=== PATIENT | male | born 1970 | race Caucasian/White ===

== ENCOUNTER 2016-11-15 14:45 | Emergency (ER) | payer BC ==
[~2016-11-15] VITALS: Ht 177.8 cm
[2016-11-15] MEDS ORDERED: METFORMIN HCL500 MG PO (15:13)
[2016-11-15] MEDS ORDERED: ADVAIR 100/501 DISK IH (15:13)
[2016-11-15] MEDS ORDERED: HYDROCHLOROTHIA25 MG PO (15:14)
[2016-11-15] MEDS ORDERED: PRAVASTATIN SOD40 MG PO (15:15)
[2016-11-15] MEDS ORDERED: FLUTICASONE PRO16 GM BOTH NARES (15:15)
[2016-11-15] MEDS ORDERED: ASPIRIN81 M2 PO (15:15)
[2016-11-15] MEDS ORDERED: LEVOFLOXACIN500 MG PO (15:16)
[2016-11-15] MEDS ORDERED: FABB TABLET1 EACH PO (15:16)
[2016-11-15 15:35] LABS: HEMATOCRIT 48.1 % (38.0-50.0); MCH 29.9 PG (29.0-34.0); MCHC 35.3 G/DL (30.0-36.0); MCV 84.5 FL (86-99); PLATELET COUNT 195 K/uL (156-360); RBC DIS.WIDTH-CV 12.8 % (11.8-14.6); RBC DIS.WIDTH-SD 39.4 % (39-53); RED BLOOD COUNT 5.69 M/uL (4.00-5.50); WHITE BLOOD COUNT 13.6 K/uL (4.1-10.2)
[2016-11-15 15:43] LABS: CHLORIDE 102 mEq/L (99-109); POTASSIUM 3.9 mEq/L (3.7-5.4); SODIUM 137 mEq/L (136-147)
[2016-11-15 15:45] LABS: GLUCOSE 129 mg/dL (70-99); INTER. NORMALIZED RATIO 1.1; PROTHROMBIN TIME 11.4 (9.2-11.2); PTT 26.9 (25-32)
[2016-11-15 15:46] LABS: ANION GAP 11 MEQ/L (2-14)
[2016-11-15 15:48] LABS: GFR ESTIMATE (CALCULATED) > 59 mL/min/
[2016-11-15 15:49] LABS: UREA NITROGEN (BUN) 14 mg/dL (9-23)
[2016-11-15] MEDS ORDERED: BACTRIM,SEPT1 TABLET PO (16:59)
[2016-11-15] MEDS ORDERED: PERCOCET 5/31 TABLET PO (16:59)
[2016-11-15 17:28] VITALS: BP 130/71
== END 2016-11-15 17:30 | disposition home or self-care (01) ==
LOC: EME 14:45
PROVIDERS: Physician Assistant
DX: L03.115 Cellulitis of right lower limb (principal); R11.0 Nausea; Z98.890 Other specified postprocedural states; E11.9 Type 2 diabetes mellitus without complications; J45.909 Unspecified asthma, uncomplicated; Z79.82 Long term (current) use of aspirin
CPT/HCPCS: 73590; 80048; 83605; 85027; 85610; 85730; 87040; 93971; 99281; 99285; J0696; J3010; J7050

== ENCOUNTER 2017-12-09 15:28 | Emergency (ER) | payer BC ==
[~2017-12-09] VITALS: Ht 177.8 cm; Wt 150.5 kg
[~2017-12-09 15:28] MED LIST: ADVAIR 100/501 DISK IH; ASPIRIN81 M2 PO; BACTRIM,SEPT1 TABLET PO; FABB TABLET1 EACH PO; FLUTICASONE PRO16 GM BOTH NARES; HYDROCHLOROTHIA25 MG PO; LEVOFLOXACIN500 MG PO; METFORMIN HCL500 MG PO; PERCOCET 5/31 TABLET PO; PRAVASTATIN SOD40 MG PO
[2017-12-09 17:45] VITALS: BP 135/84
== END 2017-12-09 17:46 | disposition home or self-care (01) ==
LOC: EME 15:28
DX: M79.662 Pain in left lower leg (principal); J45.909 Unspecified asthma, uncomplicated; E11.9 Type 2 diabetes mellitus without complications; D68.51 Activated protein C resistance; Z79.84 Long term (current) use of oral hypoglycemic drugs; Z79.82 Long term (current) use of aspirin
CPT/HCPCS: 93971; 99281; 99283